=== PATIENT | female | born 1980 | race Caucasian/White ===

== ENCOUNTER 2021-02-28 13:00 | Outpatient (RCR) | payer BC ==
[~2021-02-28 13:00] MED LIST: ATARAX 25MG25 MG/TAB PO; FLEXERIL 1010 MG/TAB PO; PROTONIX20 MG PO; VOLTAREN 75 DR75 MG PO
== END 2021-03-11 | disposition home or self-care (01) ==
LOC: WSPT
DX: M54.16 Radiculopathy, lumbar region (principal)
CPT/HCPCS: G0283-GP

== ENCOUNTER 2021-03-12 10:09 | Outpatient (RCR) | payer BC | END 2021-04-08 | disposition home or self-care (01) | LOC: WSPT | DX: M54.16 Radiculopathy, lumbar region (principal) ==

== ENCOUNTER → 2021-03-26 | Outpatient (CLI) | payer BC | LOC: MHCPAIN 10:45 | DX: M47.896 Other spondylosis, lumbar region (principal); M79.2 Neuralgia and neuritis, unspecified; M54.16 Radiculopathy, lumbar region; M96.1 Postlaminectomy syndrome, not elsewhere classified | CPT/HCPCS: G0463 ==

== ENCOUNTER → 2021-04-04 | Outpatient (CLI) | payer BC | LOC: MHCPAIN 09:42 | DX: M47.816 Spondylosis without myelopathy or radiculopathy, lumbar region (principal); M53.3 Sacrococcygeal disorders, not elsewhere classified; M54.16 Radiculopathy, lumbar region | CPT/HCPCS: J1100; Q9967 ==

== ENCOUNTER 2021-04-23 10:53 | Outpatient (RCR) | payer BC | END 2021-04-23 10:54 | disposition home or self-care (01) | LOC: WSPT 10:53 | DX: M54.16 Radiculopathy, lumbar region (principal) ==

== ENCOUNTER → 2021-05-01 | Outpatient (CLI) | payer BC | LOC: MHCPAIN 11:05 | DX: M47.816 Spondylosis without myelopathy or radiculopathy, lumbar region (principal); M53.3 Sacrococcygeal disorders, not elsewhere classified; M54.16 Radiculopathy, lumbar region | CPT/HCPCS: G0463 ==

== ENCOUNTER → 2021-05-09 | Outpatient (CLI) | payer BC | LOC: MHCPAIN 09:47 | DX: M47.816 Spondylosis without myelopathy or radiculopathy, lumbar region (principal); M53.3 Sacrococcygeal disorders, not elsewhere classified; M54.16 Radiculopathy, lumbar region | CPT/HCPCS: J1100; Q9967 ==

== ENCOUNTER → 2021-05-28 | Outpatient (CLI) | payer BC | LOC: MHCPAIN 13:02 | DX: M47.816 Spondylosis without myelopathy or radiculopathy, lumbar region (principal); M53.3 Sacrococcygeal disorders, not elsewhere classified; M54.16 Radiculopathy, lumbar region | CPT/HCPCS: G0463 ==

== ENCOUNTER → 2021-06-13 | Outpatient (CLI) | payer BC | LOC: MHCPAIN 14:07 | DX: M47.817 Spondylosis without myelopathy or radiculopathy, lumbosacral region (principal); M25.78 Osteophyte, vertebrae; M54.16 Radiculopathy, lumbar region | CPT/HCPCS: J1100; Q9967 ==

== ENCOUNTER → 2021-07-15 | Outpatient (CLI) | payer BC | LOC: MHCPAIN 09:50 | DX: M54.50 Low back pain, unspecified (principal); M53.3 Sacrococcygeal disorders, not elsewhere classified; G89.29 Other chronic pain | CPT/HCPCS: G0463 ==